=== PATIENT | male | born 1975 | race Caucasian/White ===

== ENCOUNTER 2017-09-02 12:18 | Emergency (ER) | payer MEDICAID ==
[~2017-09-02] VITALS: Ht 188 cm; Wt 100.0 kg
[~2017-09-02 12:18] MED LIST: AMLO2.5T2 PO; CARV-50 PO; CHLO25TA22 PO; HYDR-3965 PO; LOSA25TA96 PO
[2017-09-02 13:10] VITALS: BP 155/119
[2017-09-02] MEDS ORDERED: HYDR-565 PO (13:18)
== END 2017-09-02 14:13 | disposition home or self-care (01) ==
LOC: ER 12:18
DX: S60.221A Contusion of right hand, initial encounter (principal); I10 Essential (primary) hypertension; F17.200 Nicotine dependence, unspecified, uncomplicated; F12.10 Cannabis abuse, uncomplicated; Z88.6 Allergy status to analgesic agent; Z79.899 Other long term (current) drug therapy; W22.8XXA Striking against or struck by other objects, initial encounter; Y93.89 Activity, other specified; Y92.89 Other specified places as the place of occurrence of the external cause; Y99.8 Other external cause status
CPT/HCPCS: 29125; 73130; 99284; A6449

== ENCOUNTER 2017-10-21 08:48 | Emergency (ER) | payer MEDICAID ==
[~2017-10-21] VITALS: Ht 188 cm; Wt 99.1 kg
[~2017-10-21 08:48] MED LIST changes: -HYDR-3965 PO
[2017-10-21 09:07] VITALS: BP 134/84
[2017-10-21] MEDS ORDERED: ketorolac tromethamine 15mg/ml inj. IM ONE (09:35)
[2017-10-21] MEDS ORDERED: CYCL-1 PO (09:37)
[2017-10-21] MEDS: orphenadrine citrate 60mg/2ml inj. IM ONE ×2 (09:45→09:53)
== END 2017-10-21 10:10 | disposition home or self-care (01) ==
LOC: ER 08:49
DX: M25.511 Pain in right shoulder (principal); I10 Essential (primary) hypertension; F12.90 Cannabis use, unspecified, uncomplicated; Z88.6 Allergy status to analgesic agent; Z79.899 Other long term (current) drug therapy; X50.0XXA Overexertion from strenuous movement or load, initial encounter; Y93.89 Activity, other specified; Y92.89 Other specified places as the place of occurrence of the external cause; Y99.8 Other external cause status
CPT/HCPCS: 29105; 96372; 99284; J1885; J2360; L3650

== ENCOUNTER 2017-11-16 19:02 | Emergency (ER) | payer MEDICAID, OTHER ==
[~2017-11-16] VITALS: Ht 188 cm; Wt 84.7 kg
[~2017-11-16 19:02] MED LIST changes: +CYCL-1 PO
[2017-11-16 19:04] VITALS: BP_SYST 116
[2017-11-16] MEDS ORDERED: TETanus/Pertussis (Acell)/Diphther VAC/PF (Tdap-Adult) 0.5ml syringe IM ONE (19:20)
[2017-11-16] MEDS ORDERED: LIDOcaine/epinephrine TOPICAL 5 ML BTL TOP ONE (19:20)
[2017-11-16] MEDS ORDERED: bacitracin 15gm ointment TP ONE (19:20)
[2017-11-16] MEDS ORDERED: CEPH-571 PO (19:43)
== END 2017-11-16 19:54 | disposition home or self-care (01) ==
LOC: ER 19:02
DX: S51.812A Laceration without foreign body of left forearm, initial encounter (principal); I10 Essential (primary) hypertension; F12.90 Cannabis use, unspecified, uncomplicated; Z88.6 Allergy status to analgesic agent; Z79.899 Other long term (current) drug therapy; X58.XXXA Exposure to other specified factors, initial encounter; Y93.89 Activity, other specified; Y92.89 Other specified places as the place of occurrence of the external cause; Y99.8 Other external cause status
CPT/HCPCS: 12002; 99283; A6255; J0171

== ENCOUNTER 2018-04-27 17:26 | Emergency (ER) | payer MEDICAID, OTHER ==
[~2018-04-27] VITALS: Ht 188 cm; Wt 93.2 kg
[~2018-04-27 17:26] MED LIST changes: +CEPH-571 PO
[2018-04-27 18:14] LABS: PARTIAL THROMBOPLASTIN TIME 27 SECONDS (22-32); PROTHROMBIN TIME 9.7 SECONDS (9.0-12.0)
[2018-04-27 18:15] LABS: ALANINE AMINOTRANSFERASE 94 U/L (12-78); ALBUMIN 3.7 G/DL (3.4-5.0); ALKALINE PHOSPHATASE 149 IU/L (46-116); ANION GAP 15 (8-16); ASPARTATE AMINO TRANSFERASE 218 U/L (10-37); BILIRUBIN,TOTAL 1.1 MG/DL (0.1-1.0); BLOOD UREA NITROGEN 16 MG/DL (7-18); BUN/CREATININE RATIO 14.8 (5.4-32.0); CALCIUM 8.4 MG/DL (8.5-10.1); CHLORIDE 101 MMOL/L (99-107); CREATININE 1.08 MG/DL (0.60-1.10); GLUCOSE 120 MG/DL (70-104); POTASSIUM 3.9 MMOL/L (3.5-5.1); SODIUM 140 MMOL/L (135-145); TOTAL CARBON DIOXIDE 24.2 MMOL/L (24-32); TOTAL PROTEIN 7.3 G/DL (6.4-8.2); eGFR 76 ML/MIN
[2018-04-27 18:18] LABS: BASOPHILS # (AUTO) 0.1 X10'3 (0-0.2); BASOPHILS % (AUTO) 0.8 % (0-1); EOSINOPHILS # (AUTO) 0.1 X10'3 (0-0.9); HEMATOCRIT 40.7 % (42.0-52.0); LYMPHOCYTES # (AUTO) 2.1 X10'3 (1.1-4.8); LYMPHOCYTES % (AUTO) 31.2 % (21-51); MEAN CORPUSCULAR HEMOGLOBIN 33.6 PG (27.0-31.0); MEAN CORPUSCULAR HGB CONC 34.4 % (33.0-36.5); MEAN CORPUSCULAR VOLUME 97.6 FL (78-98); MONOCYTES # (AUTO) 0.7 X10'3 (0-0.9); MONOCYTES % (AUTO) 10.8 % (2-12); NEUTROPHILS # (AUTO) 3.7 X10'3 (1.8-7.7); NEUTROPHILS % (AUTO) 56.2 % (42-75); PLATELET COUNT 239 X10'3 (140-440); RED BLOOD COUNT 4.17 X10'6 (4.70-6.10); RED CELL DISTRIBUTION WIDTH 13.9 % (11.5-14.5); WHITE BLOOD COUNT 6.6 X10'3 (4.5-11.0)
[2018-04-27 20:41] VITALS: BP 172/144
[2018-04-27] MEDS ORDERED: THO10T PO (20:58)
== END 2018-04-27 21:33 | disposition home or self-care (01) ==
LOC: ER 17:27
DX: R06.6 Hiccough (principal); K44.9 Diaphragmatic hernia without obstruction or gangrene; R06.02 Shortness of breath; R07.9 Chest pain, unspecified; I10 Essential (primary) hypertension; Z88.6 Allergy status to analgesic agent; Z87.891 Personal history of nicotine dependence; Z79.899 Other long term (current) drug therapy
CPT/HCPCS: 36415; 71045; 80053; 84484; 85025; 85610; 85730; 93005; 99284

== ENCOUNTER 2018-05-09 09:31 | Emergency (ER) | payer MEDICAID ==
[~2018-05-09] VITALS: Ht 188 cm; Wt 96.0 kg
[~2018-05-09 09:31] MED LIST changes: +THO10T PO
[2018-05-09 10:43] LABS: BASOPHILS # (AUTO) 0.1 X10'3 (0-0.2); EOSINOPHILS # (AUTO) 0.1 X10'3 (0-0.9); EOSINOPHILS % (AUTO) 1.3 % (0-6); HEMATOCRIT 36.9 % (42.0-52.0); HEMOGLOBIN 12.5 g/dl (14.0-17.9); LYMPHOCYTES # (AUTO) 1.3 X10'3 (1.1-4.8); LYMPHOCYTES % (AUTO) 18.2 % (21-51); MEAN CORPUSCULAR HEMOGLOBIN 33.4 PG (27.0-31.0); MEAN CORPUSCULAR VOLUME 98.5 FL (78-98); MEAN PLATELET VOLUME 8.8 FL (7.4-10.4); MONOCYTES # (AUTO) 0.9 X10'3 (0-0.9); MONOCYTES % (AUTO) 13.4 % (2-12); NEUTROPHILS # (AUTO) 4.5 X10'3 (1.8-7.7); NEUTROPHILS % (AUTO) 66.1 % (42-75); PLATELET COUNT 219 X10'3 (140-440); RED BLOOD COUNT 3.74 X10'6 (4.70-6.10); RED CELL DISTRIBUTION WIDTH 13.3 % (11.5-14.5); WHITE BLOOD COUNT 6.9 X10'3 (4.5-11.0)
[2018-05-09 11:00] LABS: ALANINE AMINOTRANSFERASE 62 U/L (12-78); ALBUMIN 3.5 G/DL (3.4-5.0); ALKALINE PHOSPHATASE 93 IU/L (46-116); ANION GAP 12 (8-16); ASPARTATE AMINO TRANSFERASE 42 U/L (10-37); BILIRUBIN,TOTAL 0.4 MG/DL (0.1-1.0); BLOOD UREA NITROGEN 11 MG/DL (7-18); BUN/CREATININE RATIO 10.2 (5.4-32.0); CALCIUM 8.9 MG/DL (8.5-10.1); CHLORIDE 101 MMOL/L (99-107); CREATININE 1.08 MG/DL (0.60-1.10); GLUCOSE 102 MG/DL (70-104); POTASSIUM 4.1 MMOL/L (3.5-5.1); SODIUM 139 MMOL/L (135-145); TOTAL CARBON DIOXIDE 26.1 MMOL/L (24-32); TOTAL PROTEIN 7.1 G/DL (6.4-8.2); eGFR 76 ML/MIN
[2018-05-09 11:16] LABS: CLARITY,URINE CLEAR (Clear); COLOR,URINE STRAW (Yellow); GLUCOSE, URINE NEGATIVE (Neg); KETONES,URINE NEGATIVE (Neg); LEUKOCYTE ESTERASE ,URINE NEGATIVE (Neg); NITRITES, URINE NEGATIVE (Neg); OCCULT BLOOD,URINE NEGATIVE (Neg); PH,URINE 6.5 (4.8-8.0); PROTEIN,URINE NEGATIVE (Neg); UROBILINOGEN,URINE 0.2 E.U/dL (0.2-1.0)
[2018-05-09 11:19] LABS: UA COLLECTION TYPE CLN CATCH MIDSTREAM
[2018-05-09 11:49] VITALS: BP 140/92
== END 2018-05-09 11:54 | disposition home or self-care (01) ==
LOC: ER 09:31
DX: R60.0 Localized edema (principal); I10 Essential (primary) hypertension; K21.9 Gastro-esophageal reflux disease without esophagitis; Z88.6 Allergy status to analgesic agent; Z79.2 Long term (current) use of antibiotics; Z79.899 Other long term (current) drug therapy
CPT/HCPCS: 36415; 80053; 81003; 85025; 99283

== ENCOUNTER 2019-01-02 21:55 | Emergency (ER) | payer MEDICAID ==
[~2019-01-02] VITALS: Ht 185.4 cm; Wt 100.0 kg
[~2019-01-02 21:55] MED LIST changes: -THO10T PO
[2019-01-02 22:04] VITALS: BP 124/76
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
[2019-01-02] MEDS ORDERED: mag hydrox/Alum hydrox/simeth 30ml oral suspension PO ONE (22:15)
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
== END 2019-01-02 22:39 ==
LOC: ER 21:55
DX: S01.112A Laceration without foreign body of left eyelid and periocular area, initial encounter (principal); S20.311A Abrasion of right front wall of thorax, initial encounter; I10 Essential (primary) hypertension; K21.9 Gastro-esophageal reflux disease without esophagitis; F41.9 Anxiety disorder, unspecified; F10.99 Alcohol use, unspecified with unspecified alcohol-induced disorder; Z88.6 Allergy status to analgesic agent; Z79.899 Other long term (current) drug therapy; W25.XXXA Contact with sharp glass, initial encounter; Y93.89 Activity, other specified; Y92.89 Other specified places as the place of occurrence of the external cause; Y99.8 Other external cause status; Y90.9 Presence of alcohol in blood, level not specified
CPT/HCPCS: 99283

== ENCOUNTER 2019-02-28 16:36 | Emergency (ER) | payer MEDICAID ==
[~2019-02-28] VITALS: Ht 188 cm; Wt 90.0 kg
[2019-02-28 16:41] VITALS: BP 155/106
[2019-02-28] MEDS ORDERED: TETanus/Pertussis (Acell)/Diphther VAC/PF (Tdap-Adult) 0.5ml syringe IM ONE (17:50)
[2019-02-28] MEDS ORDERED: LIDOcaine 1% W/epiNEPHrine 1:200,000 10ml vial IJ ONE (17:55)
== END 2019-02-28 18:25 | disposition home or self-care (01) ==
LOC: ER 16:37
DX: S01.81XA Laceration without foreign body of other part of head, initial encounter (principal); S05.32XA Ocular laceration without prolapse or loss of intraocular tissue, left eye, initial encounter; I10 Essential (primary) hypertension; K21.9 Gastro-esophageal reflux disease without esophagitis; F41.9 Anxiety disorder, unspecified; F10.99 Alcohol use, unspecified with unspecified alcohol-induced disorder; Z88.6 Allergy status to analgesic agent; Z79.899 Other long term (current) drug therapy; W22.8XXA Striking against or struck by other objects, initial encounter; Y93.89 Activity, other specified; Y92.89 Other specified places as the place of occurrence of the external cause; Y99.8 Other external cause status; Y90.9 Presence of alcohol in blood, level not specified
CPT/HCPCS: 12011; 90471; 99283; 99284

== ENCOUNTER 2019-07-28 18:36 | Emergency (ER) | payer MEDICAID ==
[~2019-07-28] VITALS: Ht 185.4 cm; Wt 86.2 kg
[2019-07-28 18:45] VITALS: BP 154/93
[2019-07-28] MEDS ORDERED: ketorolac trometh inj. 60 MG/2 ML VIAL IM ONE (19:40)
== END 2019-07-28 19:41 | disposition home or self-care (01) ==
LOC: ER 18:37
DX: M25.512 Pain in left shoulder (principal); I10 Essential (primary) hypertension; K21.9 Gastro-esophageal reflux disease without esophagitis; F41.9 Anxiety disorder, unspecified; Z98.890 Other specified postprocedural states; Z88.6 Allergy status to analgesic agent; Z79.2 Long term (current) use of antibiotics
CPT/HCPCS: 99282

== ENCOUNTER 2020-01-23 19:39 | Emergency (ER) | payer MEDICAID ==
[~2020-01-23] VITALS: Ht 188 cm; Wt 99.1 kg
[2020-01-23 20:40] VITALS: BP 143/90
[2020-01-23] MEDS ORDERED: PHEN1SUP96 PR (21:30)
== END 2020-01-23 21:40 | disposition home or self-care (01) ==
LOC: ER 19:40
DX: K62.5 Hemorrhage of anus and rectum (principal); I10 Essential (primary) hypertension; K21.9 Gastro-esophageal reflux disease without esophagitis; F41.9 Anxiety disorder, unspecified; Z98.890 Other specified postprocedural states; Z88.6 Allergy status to analgesic agent; Z79.2 Long term (current) use of antibiotics; Z79.899 Other long term (current) drug therapy
CPT/HCPCS: 99282

== ENCOUNTER 2020-12-04 08:38 | Inpatient (IN) | payer MEDICAID ==
[~2020-12-04] VITALS: Ht 188 cm; Wt 89.5 kg
[~2020-12-04 08:38] MED LIST changes: +PHEN1SUP96 PR
[2020-12-04] MEDS ORDERED: thiamine 100mg/ml 2ml inj. IV ONE ×2 (09:05→13:15)
[2020-12-04] MEDS ORDERED: LORazepam 2 mg/ml vial IV ONE ×2 (09:05→11:40)
[2020-12-04 09:53] LABS: HEMOGLOBIN 12.6 g/dl (14.0-17.9); RED CELL DISTRIBUTION WIDTH 17.1 % (11.5-14.5)
[2020-12-04 09:54] LABS: HEMATOCRIT 37.8 % (42.0-52.0); MEAN CORPUSCULAR HEMOGLOBIN 35.2 PG (27.0-31.0); MEAN CORPUSCULAR HGB CONC 33.2 g/dL (33.0-36.5); MEAN CORPUSCULAR VOLUME 105.9 FL (78-98); PLATELET COUNT 209 X10'3 (140-440); RED BLOOD COUNT 3.57 X10'6 (4.70-6.10)
[2020-12-04 09:57] LABS: ALANINE AMINOTRANSFERASE 115 U/L (12-78); ALBUMIN 3.2 G/DL (3.4-5.0); ALKALINE PHOSPHATASE 382 IU/L (46-116); ANION GAP 23 (8-16); ASPARTATE AMINO TRANSFERASE 334 U/L (10-37); BILIRUBIN,TOTAL 7.4 MG/DL (0.1-1.0); BLOOD UREA NITROGEN 11 MG/DL (7-18); BUN/CREATININE RATIO 8.9 (5.4-32.0); CALCIUM 7.6 MG/DL (8.5-10.1); CHLORIDE 94 MMOL/L (99-107); CREATININE 1.24 MG/DL (0.60-1.10); ETHANOL < 0.010 GM/DL (0.0-0.010); GLUCOSE 229 MG/DL (70-104); SODIUM 134 MMOL/L (135-145); TOTAL CARBON DIOXIDE 17.1 MMOL/L (24-32); eGFR 64 ML/MIN
[2020-12-04 10:03] LABS: ALBUMIN/GLOBULIN RATIO 0.8 (1.1-1.5); POTASSIUM 3.3 MMOL/L (3.5-5.1)
[2020-12-04 10:26] LABS: WHITE BLOOD COUNT 6.2 X10'3 (4.5-11.0)
[2020-12-04 10:37] LABS: ANISOCYTOSIS 1+; IMMATURE CELLS 0 % (0-0); PLATELET ESTIMATE NORMAL; TOTAL CELLS COUNTED 100
[2020-12-04 10:39] LABS: ROULEAUX 1+
[2020-12-04 10:41] LABS: TARGET CELLS 2+
[2020-12-04 10:43] LABS: LARGE PLATELETS FEW; STOMATOCYTES 2+
[2020-12-04] MEDS: dextrose 5%-normal saline 1,000 ML IV SCH ×2 (11:35→11:43)
[2020-12-04] MEDS ORDERED: HYDROcodone/acetaminophen 5mg/325mg tablet PO PRN (13:15)
[2020-12-04] MEDS ORDERED: loperamide 2mg capsule PO PRN ×2 (13:15)
[2020-12-04] MEDS ORDERED: dextrose 50%-water 50ml dispensing syringe IV PRN (13:15)
[2020-12-04] MEDS ORDERED: mag hydrox/Alum hydrox/simeth 30ml oral suspension PO PRN ×2 (13:15)
[2020-12-04] MEDS ORDERED: HYDROcodone/acetaminophen 10/325mg tab PO PRN (13:15)
[2020-12-04] MEDS ORDERED: ondansetron/PF 4mg/2ml inj IV PRN (13:15)
[2020-12-04] MEDS ORDERED: haloperidol 5mg tablet PO PRN (13:15)
[2020-12-04] MEDS ORDERED: haloperidol lactate 5mg/ml inj IM PRN (13:15)
[2020-12-04] MEDS ORDERED: morphine 2 MG/ML inj. syringe IV PRN ×2 (13:15)
[2020-12-04] MEDS ORDERED: dicyclomine 10 MG capsule PO PRN (13:15)
[2020-12-04] MEDS ORDERED: magnesium hydroxide 30ml (MOM) UD suspension PO PRN (13:15)
[2020-12-04] MEDS ORDERED: acetaminophen 325mg tablet PO PRN ×2 (13:15)
[2020-12-04] MEDS ORDERED: PANT40TA54 PO (13:40)
[2020-12-04] MEDS ORDERED: CARV6.253 PO (13:40)
[2020-12-04] MEDS ORDERED: LOSA100T57 PO (13:40)
--- NOTE | 2020-12-04 13:54 | NUR ---
PTS FATHER KARLA CALLED CHECKING ON PT. DAD REPORTS HE WILL TAKE "CARE OF THE BIRDS"AND LEFT CONTACT #
[2020-12-04 13:57] LABS: HEMOGLOBIN A1C 5.7 % (4.5-6.2)
[2020-12-04 14:10] LABS: PHOSPHORUS 3.9 MG/DL (2.3-4.5)
[2020-12-04] MEDS: LORazepam 2 mg/ml vial IV PRN ×3 (16:16→23:09)
[2020-12-04 16:25] LABS: CLARITY,URINE SLIGHTLY CLOUDY (Clear); COLOR,URINE DARK YELLOW (Yellow); GLUCOSE, URINE 100 mg/dl (Neg); KETONES,URINE NEGATIVE (Neg); LEUKOCYTE ESTERASE ,URINE NEGATIVE (Neg); NITRITES, URINE NEGATIVE (Neg); OCCULT BLOOD,URINE SMALL (Neg); PH,URINE 6.5 (4.8-8.0); PROTEIN,URINE 100 mg/dl (Neg); UA COLLECTION TYPE URINAL
--- NOTE | 2020-12-04 16:25 | NUR ---
Hospitalist Dr. Malik speaking with pt at bedside.
[2020-12-04 16:34] LABS: BACTERIA,URINE FEW /HPF (Neg); MUCUS STRANDS NONE SEEN /LPF (Neg); RBC,URINE NONE SEEN /HPF (0-2); SQUAMOUS EPITHELIAL CELL,UR NONE SEEN /LPF (FEW); WBC,URINE 0-4 /HPF (0-4)
[2020-12-04] MEDS: carvedilol 6.25mg tablet PO SCH (20:18)
[2020-12-04] MEDS: pantoprazole 40mg Tablet.DR PO SCH (20:18)
--- NOTE | 2020-12-04 21:50 | NUR ---
pt appears to be resting comfortably with eyes closed. pt on right side. equal chest rise and fall with rr of 18.
[2020-12-05 04:04] LABS: BASOPHILS # (AUTO) 0.1 X10'3 (0-0.2); MEAN CORPUSCULAR HEMOGLOBIN 36.1 PG (27.0-31.0); WHITE BLOOD COUNT 4.4 X10'3 (4.5-11.0)
[2020-12-05 04:06] LABS: BASOPHILS % (AUTO) 1.8 % (0-1); EOSINOPHILS % (AUTO) 0.2 % (0-6); HEMATOCRIT 31.9 % (42.0-52.0); HEMOGLOBIN 10.9 g/dl (14.0-17.9); LYMPHOCYTES # (AUTO) 1.2 X10'3 (1.1-4.8); LYMPHOCYTES % (AUTO) 28.2 % (21-51); MEAN CORPUSCULAR HGB CONC 34.2 g/dL (33.0-36.5); MEAN CORPUSCULAR VOLUME 105.6 FL (78-98); MEAN PLATELET VOLUME 10.2 FL (7.4-10.4); MONOCYTES # (AUTO) 0.3 X10'3 (0-0.9); MONOCYTES % (AUTO) 6.2 % (2-12); NEUTROPHILS # (AUTO) 2.8 X10'3 (1.8-7.7); NEUTROPHILS % (AUTO) 63.6 % (42-75); PLATELET COUNT 161 X10'3 (140-440); RED BLOOD COUNT 3.02 X10'6 (4.70-6.10); RED CELL DISTRIBUTION WIDTH 17.3 % (11.5-14.5)
[2020-12-05 04:26] LABS: ALANINE AMINOTRANSFERASE 97 U/L (12-78); ALBUMIN 2.5 G/DL (3.4-5.0); ALKALINE PHOSPHATASE 316 IU/L (46-116); ANION GAP 11 (8-16); ASPARTATE AMINO TRANSFERASE 327 U/L (10-37); BILIRUBIN,TOTAL 9.7 MG/DL (0.1-1.0); BLOOD UREA NITROGEN 8 MG/DL (7-18); BUN/CREATININE RATIO 7.5 (5.4-32.0); CALCIUM 7.3 MG/DL (8.5-10.1); CHLORIDE 98 MMOL/L (99-107); CREATININE 1.07 MG/DL (0.60-1.10); GLUCOSE 118 MG/DL (70-104); SODIUM 134 MMOL/L (135-145); TOTAL CARBON DIOXIDE 24.7 MMOL/L (24-32); eGFR 75 ML/MIN
[2020-12-05 04:27] LABS: ALBUMIN/GLOBULIN RATIO 0.7 (1.1-1.5); POTASSIUM 3.1 MMOL/L (3.5-5.1)
[2020-12-05 04:35] LABS: PLATELET ESTIMATE NORMAL
[2020-12-05 04:36] LABS: ANISOCYTOSIS 1+; POIKILOCYTOSIS 1+; STOMATOCYTES 2+
--- NOTE | 2020-12-05 06:28 | NUR ---
pt refuses to wear 5 leads on chest for cardiac monitoring. states "I just dont want them on."
[2020-12-05] MEDS ORDERED: folic acid inj. 2 MG, thiamine inj. 100 MG, MVI, adult No.4 with vit. K 10 ML in dextro... IV SCH ×4 (08:00)
[2020-12-05] MEDS ORDERED: nicotine 14mg patch - 24hr TD SCH (08:00)
[2020-12-05] MEDS ORDERED: atenolol 50mg tablet PO SCH (08:00)
[2020-12-05] MEDS ORDERED: thiamine 100mg tablet PO SCH (08:00)
[2020-12-05] MEDS ORDERED: folic acid 1mg tablet PO SCH (08:00)
[2020-12-05] MEDS ORDERED: multivitamins, therapeutics tablet PO SCH ×2 (08:00)
[2020-12-05] MEDS ORDERED: losartan 50mg tablet PO SCH (08:00)
[2020-12-05 08:13] VITALS: BP 127/93
[2020-12-05] MEDS: pantoprazole 40mg Tablet.DR PO SCH ×2 (09:17→20:29)
[2020-12-05] MEDS: carvedilol 6.25mg tablet PO SCH ×2 (09:18→20:00)
[2020-12-05] MEDS ORDERED: magnesium 4gm in 100ml NS 100 ML IV PRN (11:10)
[2020-12-05] MEDS ORDERED: potassium Cl 20 mEq SR tablet PO PRN ×2 (11:10)
[2020-12-05] MEDS ORDERED: magnesium Cl slow-release 64mg tablet PO PRN (11:10)
[2020-12-05] MEDS ORDERED: potassium Cl 40MEQ/1/2NS 520ml 520 ML IV PRN (11:10)
[2020-12-05 11:27] LABS: MAGNESIUM 1.2 MG/DL (1.5-2.4)
[2020-12-05] MEDS: LORazepam 2 mg/ml vial IV PRN ×4 (11:27→20:30)
[2020-12-05] MEDS: dextrose 5%-normal saline 1,000 ML IV SCH ×2 (11:28→21:05)
[2020-12-05 12:00] VITALS: BP 118/88
[2020-12-05 18:00] VITALS: BP 95/75
--- NOTE | 2020-12-05 19:00 | NUR ---
PT PULLED PIV OUT. NEW PIV STARTED. PT STATES THAT HE WILL ONLY BE HERE TWO HOURS AND THEN HE IS LEAVING.
--- NOTE | 2020-12-05 19:30 | NUR ---
PT IS REFUSING TO WEAR HIS HEART MONITOR. PT EDUCATED
--- NOTE | 2020-12-05 19:35 | NUR ---
REPORT RECIEVED FROM ISAAC SANTO. I HAVE ASSUMED CARE OF THE PT.
[2020-12-05] MEDS ORDERED: K and/or MAG REPLACEMENT MC SCH (20:00)
[2020-12-05 22:00] VITALS: BP 108/80
--- NOTE | 2020-12-05 23:00 | NUR ---
PATIENT PULLED SECOND PIV OUT AND IS REFUSING A NEW ONE PLACED. PT IS ALSO STILL REFUSING TO WEAR THE HEART MONITOR. PT EDUCATED.
--- NOTE | 2020-12-06 06:15 | NUR ---
Patient in room PCU 3017. I have received report from Shadia SANTO and had the opportunity to ask questions and assume patient care. Pt refusing IV's, Tele, and all around care and indicated he would like to leave AMA. pt education secondary to risk of leaving against medical advice. pt verbalized understanding.
--- NOTE | 2020-12-06 06:40 | NUR ---
Pt gathered all belongings including his wallet. no IV's present. pt placed shoes on feet, and clothes on body and signed AMA paperwork declining to wait to talk with a doctor. "no i am good. i am leaving now." and ambulated to the lobby (accompanied by this nurse) where he left through front lobby doors without s/sx acute distress
[2020-12-06] MEDS ORDERED: LORazepam 2 mg/ml vial IV PRN (13:15)
[2020-12-06] MEDS ORDERED: LORazepam 1 MG tablet PO PRN (13:15)
[2020-12-08] MEDS ORDERED: LORazepam 1 MG tablet PO PRN (13:15)
[2020-12-08] MEDS ORDERED: LORazepam 2 mg/ml vial IV PRN (13:15)
== END 2020-12-06 06:40 | disposition left against medical advice (07) | DRG 53 ==
LOC: ER 08:39 → ED HOLD 13:15 → PCU 3S 12-05 08:01
PROVIDERS: ADMIT Internal Medicine; ATTEND Internal Medicine
DX: G40.89 Other seizures (principal); E87.2 Acidosis; K70.10 Alcoholic hepatitis without ascites; F10.239 Alcohol dependence with withdrawal, unspecified; F12.90 Cannabis use, unspecified, uncomplicated; D53.9 Nutritional anemia, unspecified; I10 Essential (primary) hypertension; I25.10 Atherosclerotic heart disease of native coronary artery without angina pectoris; F41.9 Anxiety disorder, unspecified; K21.9 Gastro-esophageal reflux disease without esophagitis; Z53.29 Procedure and treatment not carried out because of patient's decision for other reasons; I25.2 Old myocardial infarction
CPT/HCPCS: 36415; 80053; 80320; 81001; 83036; 83735; 84100; 85007; 85008; 85025; 85610; 87081; 93005; 96365; 96375; 96376; 99285; G0378; J2060; J3411; J7042

== ENCOUNTER 2021-11-16 17:24 | Emergency (ER) | payer MEDICAID ==
[~2021-11-16] VITALS: Ht 188 cm; Wt 81.8 kg
[~2021-11-16 17:24] MED LIST changes: -AMLO2.5T2 PO; -CARV-50 PO; +CARV6.253 PO; -CEPH-571 PO; -CHLO25TA22 PO; -CYCL-1 PO; +LOSA100T57 PO; -LOSA25TA96 PO; +PANT40TA54 PO; -PHEN1SUP96 PR
[2021-11-16 18:20] VITALS: BP 148/101
[2021-11-16 18:42] LABS: BASOPHILS % (AUTO) 1.1 % (0-1); EOSINOPHILS % (AUTO) 0.3 % (0-6); HEMATOCRIT 44.5 % (42.0-52.0); HEMOGLOBIN 15.3 g/dl (14.0-17.9); LYMPHOCYTES % (AUTO) 46.7 % (21-51); MEAN CORPUSCULAR HEMOGLOBIN 35.5 PG (27.0-31.0); MEAN CORPUSCULAR HGB CONC 34.3 g/dL (33.0-36.5); MEAN CORPUSCULAR VOLUME 103.4 FL (78-98); MEAN PLATELET VOLUME 8.8 FL (7.4-10.4); MONOCYTES # (AUTO) 0.7 X10'3 (0-0.9); MONOCYTES % (AUTO) 15.8 % (2-12); NEUTROPHILS # (AUTO) 1.5 X10'3 (1.8-7.7); NEUTROPHILS % (AUTO) 36.1 % (42-75); PLATELET COUNT 107 X10'3 (140-440); RED CELL DISTRIBUTION WIDTH 14.6 % (11.5-14.5); WHITE BLOOD COUNT 4.2 X10'3 (4.5-11.0)
[2021-11-16 19:08] LABS: ALANINE AMINOTRANSFERASE 133 U/L (12-78); ALBUMIN 3.5 G/DL (3.4-5.0); ALBUMIN/GLOBULIN RATIO 0.9 (1.1-1.5); ALKALINE PHOSPHATASE 125 IU/L (46-116); ANION GAP 13 (8-16); ASPARTATE AMINO TRANSFERASE 204 U/L (10-37); BILIRUBIN,TOTAL 0.8 MG/DL (0.1-1.0); BLOOD UREA NITROGEN 18 MG/DL (7-18); BUN/CREATININE RATIO 11.3 (5.4-32.0); CALCIUM 8.9 MG/DL (8.5-10.1); CHLORIDE 98 MMOL/L (99-107); CREATININE 1.59 MG/DL (0.60-1.10); GLUCOSE 101 MG/DL (70-104); SODIUM 142 MMOL/L (135-145); TOTAL CARBON DIOXIDE 30.9 MMOL/L (24-32); TOTAL PROTEIN 7.4 G/DL (6.4-8.2); eGFR 48 ML/MIN
[2021-11-16 19:10] LABS: ETHANOL 0.338 GM/DL (0.0-0.010)
[2021-11-16] MEDS ORDERED: chlordiazePOXIDE 25mg capsule PO ONE (19:10)
[2021-11-16] MEDS ORDERED: normal saline 1000ml 1,000 ML IV ONE (19:10)
[2021-11-16] MEDS ORDERED: thiamine 100mg/ml 2ml inj. IV ONE (19:10)
[2021-11-16] MEDS ORDERED: ondansetron/PF 4mg/2ml inj IV ONE (19:10)
[2021-11-16 19:13] LABS: POTASSIUM 2.9 MMOL/L (3.5-5.1)
[2021-11-16] MEDS ORDERED: gabapentin 400mg capsule PO ONE (19:15)
[2021-11-16] MEDS ORDERED: potassium Cl 20 mEq SR tablet PO STA (19:20)
[2021-11-16] MEDS ORDERED: CHLO25CA10 PO (19:33)
--- NOTE | 2021-11-16 19:36 | NUR ---
po med given ivp x2 given by iain eason [id number] started
--- NOTE | 2021-11-16 19:56 | NUR ---
iv dc'd pt being discharged . dressing applied
== END 2021-11-16 19:58 | disposition home or self-care (01) ==
LOC: ER 17:25
DX: F10.20 Alcohol dependence, uncomplicated (principal); Y90.9 Presence of alcohol in blood, level not specified; I10 Essential (primary) hypertension; K21.9 Gastro-esophageal reflux disease without esophagitis
CPT/HCPCS: 80053; 80320; 85025; 93005; 96361; 96374; 96375; 99284; J2405; J3411; J7030

== ENCOUNTER 2021-11-19 10:36 | Emergency (ER) | payer MEDICAID ==
[~2021-11-19] VITALS: Ht 188 cm; Wt 86.4 kg
[~2021-11-19 10:36] MED LIST changes: +CHLO25CA10 PO
[2021-11-19 10:44] VITALS: BP 189/128
[2021-11-19] MEDS ORDERED: ONDA4TAB12 PO (10:46)
[2021-11-19] MEDS ORDERED: CHLO25CA10 PO (10:46)
== END 2021-11-19 10:57 | disposition home or self-care (01) ==
LOC: ER 10:36
DX: F10.239 Alcohol dependence with withdrawal, unspecified (principal); F10.221 Alcohol dependence with intoxication delirium; I10 Essential (primary) hypertension; K21.9 Gastro-esophageal reflux disease without esophagitis; Y90.9 Presence of alcohol in blood, level not specified
CPT/HCPCS: 99283